=== PATIENT | female | born 1965 | race Native Hawaiian/Other Pacific Islander ===

== ENCOUNTER 2017-10-10 16:00 | Outpatient (CLI) | payer OTHER | END 2017-10-10 16:04 | disposition short-term general hospital (02) | LOC: AMB 16:00 | DX: S89.82XA Other specified injuries of left lower leg, initial encounter (principal); V04.00XA Pedestrian on foot injured in collision with heavy transport vehicle or bus in nontraffic accident, initial encounter; Y92.512 Supermarket, store or market as the place of occurrence of the external cause | CPT/HCPCS: A0425; A0427 ==

== ENCOUNTER 2017-10-10 16:10 | Emergency (ER) | payer OTHER ==
[~2017-10-10] VITALS: Ht 167.6 cm; Wt 95.3 kg
[2017-10-10 16:55] LABS: PLATELET COUNT 181 K/uL (152-353)
[2017-10-10 17:03] LABS: POTASSIUM 3.5 mmol/L (3.6-5.2)
[2017-10-10 18:10] VITALS: BP 143/71; TEMP 98.1
== END 2017-10-10 18:10 | disposition home or self-care (01) ==
LOC: ED 16:10
DX: S92.002A Unspecified fracture of left calcaneus, initial encounter for closed fracture (principal); S82.892A Other fracture of left lower leg, initial encounter for closed fracture; V03.90XA Pedestrian on foot injured in collision with car, pick-up truck or van, unspecified whether traffic or nontraffic accident, initial encounter; Y92.513 Shop (commercial) as the place of occurrence of the external cause
CPT/HCPCS: 36415; 80053; 85027; 96372; 99283; J1885; L4350